=== PATIENT | female | born 1980 | race Two or more races ===

== ENCOUNTER 2020-11-01 17:26 | Emergency (ER) | payer SELFPAY ==
[~2020-11-01] VITALS: Ht 157.5 cm; Wt 54.4 kg
[2020-11-01 17:36] VITALS: BP 101/63
[2020-11-01] MEDS ORDERED: ACETAMINOPHEN EXTRA STRENGTH 500 MG TAB PO ONE (17:50)
[2020-11-01] MEDS ORDERED: ONDA-24 SL (20:20)
[2020-11-01 21:25] VITALS: BP 101/63
--- NOTE | 2020-11-01 21:25 | NUR ---
LEFT WITHOUT DC PAPERS
== END 2020-11-01 21:25 | disposition home or self-care (01) ==
LOC: MED 17:26
DX: U07.1 COVID-19 (principal)
CPT/HCPCS: 71045; 81025; 99283

== ENCOUNTER 2020-11-09 14:56 | Emergency (ER) | payer SELFPAY ==
[~2020-11-09] VITALS: Ht 154.9 cm; Wt 54.4 kg
[~2020-11-09 14:56] MED LIST: ONDA-24 SL
[2020-11-09 15:08] VITALS: BP 99/66
--- NOTE | 2020-11-09 15:08 | NUR ---
40 YEAR OLD FEMALE COMPLAINS OF SOB, COUGH X 2 WEEKS. PT STATES MUCUS IN COUGH, ALSO COMPLAINS OF CHEST TIGHTNESS BUT DENIES CHEST PAIN. PMH - DENIES
--- NOTE | 2020-11-09 15:10 | NUR ---
DR HANSEN MADE AWARE OF PT STATUS
[2020-11-09] MEDS ORDERED: PRED50TA3 PO (16:35)
--- NOTE | 2020-11-09 17:35 | NUR ---
Patient discharged with v/s stable. Written and verbal after care instructions about cough, SOB given and explained. Patient alert, oriented and verbalized understanding of instructions. Ambulatory with steady gait. All questions addressed prior to discharge. ID band removed. Patient advised to follow up with PMD. Rx of prednisone given. Patient educated on indication of medication including possible reaction and side effects. Opportunity to ask questions provided and answered.
[2020-11-09 17:39] VITALS: BP 100/67
== END 2020-11-09 17:35 | disposition home or self-care (01) ==
LOC: MED 14:56
DX: R05 Cough (principal); R06.02 Shortness of breath; R50.9 Fever, unspecified
CPT/HCPCS: 99283